=== PATIENT | male | born 1985 | race Caucasian/White ===

== ENCOUNTER 2018-02-26 20:00 | Emergency (ER) | payer BC ==
[2018-02-26 20:06] VITALS: RESP 16
--- NOTE | 2018-02-26 20:55 | ED ---
Extremity Problem HPI - General Chief complaint: Extremity Problem,Nontraumatic Stated complaint: finger lac Time Seen by Provider: 02/26/18 20:40 Source: patient, RN notes reviewed, old records reviewed Mode of arrival: ambulatory Limitations: no limitations - History of Present Illness Initial comments: Patient is a 32-year-old male present emergency Department due to complaint of a laceration over his DIP of hisleft middle finger. Patient reports that he was using a power drill and the drill slipped and the drill a brace the distal portion of the finger. Patient reports he has full range of motion. His tetanus shot is up-to-date. He states that he has no other injury. Patient states that he's had no fevers or chills, chest pain, shortness, nausea vomiting. - Related Data Allergies Allergy/AdvReac Type Severity Reaction Status Date / Time No Known Allergies Allergy Verified 02/26/18 20:05 Review of Systems ROS Statement: Those systems with pertinent positive or pertinent negative responses have been documented in the HPI. ROS Other: All systems not noted in ROS Statement are negative. Past Medical History Past Medical History: No Reported History History of Any Multi-Drug Resistant Organisms: None Reported Past Surgical History: No Surgical Hx Reported Past Psychological History: No Psychological Hx Reported Smoking Status: Former smoker Past Alcohol Use History: Occasional Past Drug Use History: None Reported General Exam - General Exam Comments Initial Comments: Patient is a pleasant 32-year-old male. Alert and oriented. No acute distress. Limitations: no limitations General appearance: alert, in no apparent distress Head exam: Present: atraumatic, normocephalic, normal inspection Eye exam: Present: normal appearance, PERRL, EOMI. Absent: scleral icterus, conjunctival injection, periorbital swelling ENT exam: Present: normal exam, mucous membranes moist Neck exam: Present: normal inspection. Absent: tenderness, meningismus, lymphadenopathy Respiratory exam: Present: normal lung sounds bilaterally. Absent: respiratory distress, wheezes, rales, rhonchi, stridor Cardiovascular Exam: Present: regular rate, normal rhythm, normal heart sounds. Absent: systolic murmur, diastolic murmur, rubs, gallop, clicks GI/Abdominal exam: Present: soft, normal bowel sounds. Absent: distended, tenderness, guarding, rebound, rigid Extremities exam: Present: normal inspection, full ROM, normal capillary refill. Absent: tenderness, pedal edema, joint swelling, calf tenderness Left Elbow exam: Present: normal inspection, full ROM Forearm Wrist exam: Present: normal inspection, full ROM Hand Wrist exam: Present: normal inspection, tenderness (Patient has a less than 1 cm abrasion over the DIP of the middle finger. Tenderness. Full range motion noted.), laceration (DIP admit her left middle finger.). Absent: full ROM, swelling, abrasion, ecchymosis Neuro motor exam: Present: wrist extension intact, thumb opposition intact, thumb IP flexion intact, thumb adduction intact, fingers 2-5 abduction intact Vascular: Present: normal capillary refill Back exam: Present: normal inspection Neurological exam: Present: alert, oriented X3, CN II-XII intact Psychiatric exam: Present: normal affect, normal mood Skin exam: Present: warm, dry, intact, normal color. Absent: rash Course Vital Signs 02/26/18 20:01 Temperature 98.1 F Pulse Rate 76 Respiratory 16 Rate Blood Pressure 126/83 O2 Sat by Pulse 99 Oximetry Procedures - Laceration Laceration #1 Site: hand (right middle finger) Size (cm): 1 Description: linear Depth: simple, single layer Pre-repair: wound explored, irrigated extensively Size of Sutures: other (Dermabond) Patient Tolerated Procedure: well, no complications Medical Decision Making - Medical Decision Making 32-year-old male persist return today to plan of a laceration over the DIP of the left middle finger. Patient has full range motion of the ear. No evidence of tendon involvement. Wound was thoroughly irrigated and cleaned. Laceration is superficial and closed with Dermabond. Patient was placed in a finger splint keeping his [address]. Patient advised to keep the wound covered. Discussed return parameters. Patient states it is history plan will comply. Return parameters were discussed. - Radiology Data Radiology results: report reviewed history of finger is negative for any acute fracture dislocation. Disposition Clinical Impression: Finger laceration Disposition: HOME SELF-CARE Condition: Good Instructions: Finger Laceration (ED) Additional Instructions: Patient advised to monitor for any signs of infection including redness swelling or drainage. Keep the wound covered. SKIN glue to come off on its own. Return to the emergency department if any alarming signs or symptoms occur. Is patient prescribed a controlled substance at d/c from ED?: No Referrals: None,Stated [Primary Care Provider] - 1-2 days Time of Disposition: 21:20
[2018-02-26] MEDS ORDERED: TOPICAL SKIN ADHESIVE 1 EACH AMP TOPICAL ONE ×2 (21:06→21:12)
[2018-02-26 21:34] VITALS: BP 135/75; PULSE 65; TEMP 98
--- NOTE | 2018-02-26 21:52 | XR ---
EXAMINATION TYPE: XR finger LT DATE OF EXAM: 02/26/2018 COMPARISON: NONE HISTORY: Finger pain TECHNIQUE: 3 views FINDINGS: I see no fracture nor dislocation. Middle finger appears intact. IMPRESSION: Negative left middle finger exam.
== END 2018-02-26 21:35 | disposition home or self-care (01) ==
LOC: EC 20:00
DX: S61.213A Laceration without foreign body of left middle finger without damage to nail, initial encounter (principal); Z87.891 Personal history of nicotine dependence; W29.8XXA Contact with other powered hand tools and household machinery, initial encounter; Y92.009 Unspecified place in unspecified non-institutional (private) residence as the place of occurrence of the external cause; Y93.89 Activity, other specified
CPT/HCPCS: 12001; 99283

== ENCOUNTER 2021-08-05 11:16 | Emergency (ER) | payer BC ==
[2021-08-05 11:24] VITALS: RESP 18; TEMP 97.7
[2021-08-05] MEDS ORDERED: ACETAMINOPHEN TAB 500 MG TAB PO STA ×2 (11:43→11:44)
[2021-08-05] MEDS ORDERED: LIDOCAINE 1% INJ 10MG/ML (20 ML MDV) SQ ONE (11:44)
--- NOTE | 2021-08-05 11:48 | ED ---
Wound/Laceration HPI - General Chief Complaint: Wound/Laceration Stated Complaint: Lt Thumb Lac Time Seen by Provider: 08/05/21 11:25 Source: patient Mode of arrival: ambulatory Limitations: no limitations - History of Present Illness Initial Comments: This 35-year-old male presents to the emergency department with a laceration to his left thumb. Patient states she is on his arms cutting us except high with one of his sharp knives when it slipped, cutting into his left thumb. Patient states this happened about 20 minutes ago. Patient states he is up-to-date on his tetanus states he has received the shot in the last 5 years. Patient denies being on any blood thinners. Patient denies any chest pain, shortness of breath, lightheadedness, dizziness, abdominal pain, nausea, vomiting, fever. - Related Data Previous Rx's Medication Instructions Recorded Cephalexin [Keflex] 500 mg PO Q6HR #28 cap 08/05/21 Allergies Allergy/AdvReac Type Severity Reaction Status Date / Time No Known Allergies Allergy Verified 02/26/18 20:05 Review of Systems ROS Statement: Those systems with pertinent positive or pertinent negative responses have been documented in the HPI. ROS Other: All systems not noted in ROS Statement are negative. Past Medical History Past Medical History: No Reported History History of Any Multi-Drug Resistant Organisms: None Reported Past Surgical History: No Surgical Hx Reported Past Psychological History: No Psychological Hx Reported Smoking Status: Never smoker Past Alcohol Use History: Occasional Past Drug Use History: None Reported General Exam Limitations: no limitations General appearance: alert Head exam: Present: atraumatic, normocephalic, normal inspection Eye exam: Present: PERRL, EOMI Pupils: Present: normal accommodation Respiratory exam: Present: normal lung sounds bilaterally. Absent: respiratory distress, wheezes, rales, rhonchi, stridor Cardiovascular Exam: Present: regular rate, normal rhythm, normal heart sounds. Absent: systolic murmur, diastolic murmur, rubs, gallop, clicks GI/Abdominal exam: Present: soft, normal bowel sounds. Absent: distended, tenderness, guarding, rebound, rigid Extremities exam: Present: other (1-1.5 Centimeter laceration through left thumb, going through the nail bed. Minimal bleeding present. Full sensation and range of motion intact) Neurological exam: Present: alert, oriented X3, CN II-XII intact Psychiatric exam: Present: normal affect, normal mood Course Vital Signs 08/05/21 11:22 Temperature 97.7 F Pulse Rate 92 Respiratory 18 Rate Blood Pressure 135/68 O2 Sat by Pulse 98 Oximetry Procedures - Laceration Laceration #1 Consent Obtained: verbal consent Indication: laceration Site: other (Left hand thumb) Description: linear Depth: simple, single layer Anesthetic Used: lidocaine 1% Anesthesia Technique: nerve block Pre-repair: wound explored, irrigated extensively Type of Sutures: nylon Size of Sutures: 5-0 Number of Sutures: 5 Technique: simple, interrupted Patient Tolerated Procedure: well, no complications Medical Decision Making - Medical Decision Making This 35-year-old male presents emergency department with laceration to his left thumb that happened about half hour ago. She is not on blood thinners and is up-to-date on his tetanus vaccine. Patient with vertical laceration through nail. Thumb x-ray impression: Tuft fracture first digit with minimal displacement. One suture was placed through nail, 4 sutures were placed in laceration. Patient informed to have sutures removed in 10 days. Antibiotics were given for fracture. Pain medication was given. Patient to follow-up with orthopedics in next 24-48 hours. Strict return precautions were discussed. Patient verbally agreed to plan. Patient sent home in stable condition. - Radiology Data Radiology results: report reviewed, image reviewed Disposition Clinical Impression: Laceration of thumb with damage to nail, Fracture of thumb, left, open Disposition: HOME SELF-CARE Condition: Stable Instructions (If sedation given, give patient instructions): Care For Your Stitches (ED), Laceration (ED), Thumb Fracture (ED) Additional Instructions: Please return to the emergency department with any concerning, new, worsening symptoms. Please return to the emergency department to have sutures removed in 10 days. Please follow up with orthopedics in next 24-48 hours. Take medication as directed. Prescriptions: Cephalexin [Keflex] 500 mg PO Q6HR #28 cap Is patient prescribed a controlled substance at d/c from ED?: No Referrals: None,Stated [Primary Care Provider] - 1-2 days Shagufta Irvin DO [Doctor of Osteopathic Medicine] - 1-2 days Time of Disposition: 12:53
--- NOTE | 2021-08-05 12:06 | XR ---
First digit left hand HISTORY: Laceration 3 views of the first digit of the left hand Bone mineralization, joint spaces and alignment are maintained at the thumb. There is no radiopaque f oreign body. There is a tuft fracture with minimal displacement. Associated soft tissue defect is pre sent. IMPRESSION: Tuft fracture first digit with minimal displacement
[2021-08-05] MEDS ORDERED: BACITRACIN OINT 1 EACH PACKET TOPICAL ONE (12:48)
[2021-08-05] MEDS ORDERED: ACET/COD 300 MG/30 MG STARTER PACK 6 TAB BTL PO STA (12:50)
[2021-08-05 13:08] VITALS: BP 136/71; PULSE 88
== END 2021-08-05 13:07 | disposition home or self-care (01) ==
LOC: EC 11:16
DX: S61.112A Laceration without foreign body of left thumb with damage to nail, initial encounter (principal); S62.502A Fracture of unspecified phalanx of left thumb, initial encounter for closed fracture; W26.0XXA Contact with knife, initial encounter
CPT/HCPCS: 12001; 99282; 73140; J2001